=== PATIENT | female | born 1980 | race Hispanic/Latino ===

== ENCOUNTER 2022-10-19 00:46 | Emergency (ER) | payer OTHER ==
[~2022-10-19] VITALS: Ht 165.1 cm; Wt 54.0 kg
[~2022-10-19 00:46] MED LIST: DOCU-116 PO; IBUP-2077 PO; LEVO25TA9 PO; PNV1TABL57 PO; VALA500T PO
[2022-10-19] MEDS ORDERED: IBUP-1493 PO (01:43)
[2022-10-19 01:56] VITALS: BP 142/88
== END 2022-10-19 01:58 | disposition home or self-care (01) ==
LOC: EDH 00:46
DX: O92.29 Other disorders of breast associated with pregnancy and the puerperium (principal); Z79.899 Other long term (current) drug therapy
CPT/HCPCS: 99282